=== PATIENT | male | born 1975 | race Two or more races ===

== ENCOUNTER 2018-12-15 16:52 | Emergency (ER) | payer OTHER ==
[~2018-12-15] VITALS: Ht 175.3 cm; Wt 117.0 kg
[2018-12-15] MEDS ORDERED: fentaNYL CITRATE 100 MCG/2 ML VL IV ONE (19:15)
[2018-12-15] MEDS ORDERED: KETOROLAC TROMETH 30 MG/ML 1ML VIAL IV ONE (19:15)
[2018-12-15 20:24] VITALS: BP 155/93
== END 2018-12-15 20:42 | disposition home or self-care (01) ==
LOC: EDBD 16:52 → ER 16:54
DX: S82.841A Displaced bimalleolar fracture of right lower leg, initial encounter for closed fracture (principal); I10 Essential (primary) hypertension; W01.198A Fall on same level from slipping, tripping and stumbling with subsequent striking against other object, initial encounter; Y93.01 Activity, walking, marching and hiking; Y99.8 Other external cause status; Y92.89 Other specified places as the place of occurrence of the external cause
CPT/HCPCS: 29515; 73610; 96374; 96375; 99283; J1885; J3010